=== PATIENT | male | born 1995 | race Caucasian/White ===

== ENCOUNTER 2017-12-18 23:43 | Emergency (ER) | payer OTHER ==
[~2017-12-18] VITALS: Ht 177.8 cm; Wt 68.2 kg
[2017-12-18 23:47] VITALS: BP 115/72; TEMP 97.8
[2017-12-19 00:49] VITALS: PULSE 63
== END 2017-12-19 01:01 | disposition home or self-care (01) ==
LOC: COL.ER 23:43
DX: S61.412A Laceration without foreign body of left hand, initial encounter (principal); Z23 Encounter for immunization; Z88.5 Allergy status to narcotic agent; W26.0XXA Contact with knife, initial encounter; Y92.009 Unspecified place in unspecified non-institutional (private) residence as the place of occurrence of the external cause

== ENCOUNTER 2018-01-01 10:03 | Emergency (ER) | payer OTHER ==
[2018-01-01 10:14] VITALS: BP 92/50; PULSE 72; TEMP 96.6
== END 2018-01-01 10:21 | disposition home or self-care (01) ==
LOC: COL.ER 10:03
DX: S61.412D Laceration without foreign body of left hand, subsequent encounter (principal); X58.XXXD Exposure to other specified factors, subsequent encounter